=== PATIENT | male | born 1970 | race Caucasian/White ===

== ENCOUNTER 2018-02-25 16:42 | Emergency (ER) | payer BC ==
[~2018-02-25] VITALS: Ht 175.3 cm; Wt 70.3 kg
[2018-02-25] MEDS ORDERED: ONDANSETRON HCL/PF 4 MG/2 ML VIAL ONE (16:51)
[2018-02-25] MEDS ORDERED: HYDROMORPHONE INJ 0.5 MG/0.5 ML SYRINGE ONE ×4 (16:52→18:43)
[2018-02-25 16:59] LABS: BASOPHILS # (AUTO) 0.1 /CMM (0.0-0.2); BASOPHILS % (AUTO) 0.4 % (0.0-2.0); EOSINOPHILS % (AUTO) 0.1 % (0.0-6.0); HEMATOCRIT 49 % (39-51); HEMOGLOBIN 15.9 g/dL (13.5-17.5); LYMPHOCYTES % (AUTO) 17.4 % (20.0-44.0); MEAN CORPUSCULAR HGB CONC 33 g/dl (31.0-36.0); MEAN CORPUSCULAR VOLUME 88 fL (80-96); MONOCYTES # (AUTO) 0.2 /CMM (0.1-1.30); NEUTROPHILS # (AUTO) 18.5 /CMM (1.8-8.9); NEUTROPHILS % (AUTO) 81.1 % (43.0-81.0); PLATELET COUNT (AUTO) 473 /CMM (150-450); RDW COEFFICIENT OF VARIATION 14.8 (11.5-15.0); RED BLOOD CELL COUNT(AUTO) 5.59 MIL/uL (4.5-6.0); WHITE BLOOD COUNT (AUTO) 22.9 K/uL (4.3-11.0)
[2018-02-25] MEDS ORDERED: HYDROMORPHONE INJ 2 MG/ML DISP.SYRIN IV ONE (17:00)
[2018-02-25] MEDS ORDERED: ONDANSETRON HCL/PF 4 MG/2 ML VIAL IVP ONE (17:00)
[2018-02-25] MEDS ORDERED: IV NS 0.9% 1,000 ML BAG IV ONE ×2 (17:00→18:30)
--- NOTE | 2018-02-25 17:01 | NUR ---
PATIENT TO ED DT ACUTE ABDOMINAL PAIN X 1 HOUR, PATIENT RECEIVED AWAKE, APPEARS IN DISTRESS. COMPLAINING OF 10/10 PAIN AND NAUSEA,. PATIENT IS AFEBRILE. GOWNED PT AND PLACED ON TELE MONITOR. EVALUATED BY
[2018-02-25] MEDS ORDERED: AMOX-430 PO (17:02)
[2018-02-25 17:22] LABS: ALBUMIN 3.4 g/dL (3.4-5.0); CALCIUM, SERUM 9.3 mg/dL (8.5-10.1); CREATININE 1.4 mg/dL (0.6-1.3); POTASSIUM 2.9 mmol/L (3.5-5.1); TOTAL PROTEIN, SERUM 7.8 g/dL (6.4-8.2)
[2018-02-25] MEDS ORDERED: HYDROMORPHONE INJ 0.5 MG/0.5 ML SYRINGE IV ONE ×3 (17:30→19:30)
[2018-02-25] MEDS ORDERED: POTASSIUM CL. PREMIX PERIPHER. 50 ML ONE ×4 (18:14→21:38)
[2018-02-25] MEDS: POTASSIUM CL. PREMIX PERIPHER. 50 ML IV SCH ×4 (18:25→21:56)
[2018-02-25] MEDS ORDERED: PIPERACILLIN /TAZOBACTAM 3.375 G in IV D5W 50 ML IV ONE (18:30)
[2018-02-25] MEDS ORDERED: PIPERACILLIN /TAZOBACTAM 3.375 G VIAL IV ONE (18:37)
--- NOTE | 2018-02-25 18:40 | NUR ---
EPIFANIO MOREL SPOKE WITH DMITRY, ON THE PHONE WITH DR GUERRA REGARDING TX INFORMATION.
[2018-02-25] MEDS ORDERED: HYDROMORPHONE INJ 2 MG/ML DISP.SYRIN ONE ×2 (19:37→21:55)
--- NOTE | 2018-02-25 20:01 | NUR ---
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
--- NOTE | 2018-02-25 20:45 | NUR ---
FAMILY MEMBER AT BEDSIDE
--- NOTE | 2018-02-25 21:18 | NUR ---
PT IS COMFORTABLE IN BED SLEEPING. WILL CONTINUE TO MONITOR
[2018-02-25 21:19] VITALS: BP 129/74
--- NOTE | 2018-02-25 21:30 | NUR ---
SHAYNA FROM [facility] CALLED WITH TX INFO PATIENT WILL BE GOING TO BED [id number] NUMBER TO GIVE REPORT IS EXT [phone] DANYELLE MEZA
--- NOTE | 2018-02-25 21:34 | NUR ---
CALLED [facility] FOR TRANSPORT ETA OF [phone] WAS GIVEN. TRIP#[id number]
[2018-02-25] MEDS ORDERED: HYDROMORPHONE 1 MG/1 ML DISP.SYRIN IV ONE (22:00)
== END 2018-02-25 22:56 | disposition short-term general hospital (02) ==
LOC: ER 16:44
DX: A41.9 Sepsis, unspecified organism (principal); R65.20 Severe sepsis without septic shock; E87.6 Hypokalemia; K85.10 Biliary acute pancreatitis without necrosis or infection; K50.90 Crohn's disease, unspecified, without complications; N28.9 Disorder of kidney and ureter, unspecified; E87.2 Acidosis; K44.9 Diaphragmatic hernia without obstruction or gangrene; K57.30 Diverticulosis of large intestine without perforation or abscess without bleeding; K80.21 Calculus of gallbladder without cholecystitis with obstruction; K85.90 Acute pancreatitis without necrosis or infection, unspecified; N40.0 Benign prostatic hyperplasia without lower urinary tract symptoms; K56.609 Unspecified intestinal obstruction, unspecified as to partial versus complete obstruction; Z90.49 Acquired absence of other specified parts of digestive tract; Z98.890 Other specified postprocedural states; Z60.2 Problems related to living alone
CPT/HCPCS: 36415; 71045; 74176; 76705; 80048; 80076; 83605; 83690; 85025; 87040 ×2; 87081; 96361; 96365; 96368; 96375; 96376; 99285; A4606; J1170 ×2; J2405; J2543 ×2; J3480 ×4; J7030 ×2; J7060; Z7610